=== PATIENT | female | born 1955 | race Caucasian/White ===

== ENCOUNTER 2022-11-21 07:00 | Outpatient (CLI) | payer MEDICARE, MEDICAID, SELFPAY ==
--- NOTE | 2022-11-21 07:21 | CT_ITS ---
WS: [id number] CT NECK TECHNIQUE: Contrast-enhanced CT of the neck with coronal and sagittal reformatted images. 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 DLP: 209.[address] scans at [facility] use at least one of these dose optimization techniques: automated e xposure control; mA and/or kV adjustment per patient size (includes targeted exams where dose is matc hed to clinical indication); or iterative reconstruction. FINDINGS: Large enhancing soft tissue mass at the tongue base suspicious for neoplasm measuring approximately 1 .9 x 3.8 x 2.9 cm. Associated filling of the vallecula with involvement of the epiglottis and aryepig lottic folds bilaterally. Mild narrowing of the piriform sinuses. Recommend direct visualization. Few prominent enhancing LEFT greater than RIGHT retromandibular and jugulodigastric lymph nodes upper limits of normal. Recommend staging with PET/CT. Normal parotid glands. Normal submandibular glands. Normal thyroid enhancement. A few small thyroid n odules largest on the RIGHT measuring 7 mm. Mastoid air cells are well aerated. Paranasal sinuses are well aerated. Lung apices are well aerated. Slight reversal normal cervical lordosis. Mild spondylitic changes cervical spine. IMPRESSION: 1. Large enhancing soft tissue mass involving the tongue base with filling of the vallecula and invo lvement of the epiglottis and aryepiglottic folds. Findings suspicious for neoplasm. Recommend direct visualization with sampling. 2. Enhancing prominent LEFT greater than RIGHT retromandibular lymph nodes. Recommend staging with P ET/CT. 3. No other acute findings.
--- NOTE | 2022-11-21 08:13 | FL_ITS ---
WS: [id number] EXAMINATION: FL barium swallow [id number] REASON FOR EXAM: NEOPLASM OF UNCERTAIN BEHAVIOR OF LARYNX ORDER DATE: 11/21/2022 8:21 AM COMPARISON: None available. TECHNIQUE: The patient was able to swallow thick barium for the esophagram. Cine-fluoroscopy with rapid sequence imaging was obtained while the patient swallowed. The patient was also placed supine and in various recumbent positions during the exam. FINDINGS: There was a normal mucosal fold pattern in the upper esophagus. There is no sign of diverticula, webs or stricture. There was no delay in contrast emptying from the esophagus into the stomach. There was a small sliding hiatal hernia. With provocative maneuvers no gastroesophageal reflux was initiated. The distal esophageal mucosal pattern is unremarkable. IMPRESSION:. HIATAL HERNIA WITHOUT GASTROESOPHAGEAL REFLUX. FLUOROSCOPY TIME: 1min [id number] # OF SPOT FILMS:
[2022-11-21 08:18] LABS: Blood Urea Nitrogen 8 mg/dL (8-23); Glomerular Filtration Rate 55.6 mL/min (90-130)
[2022-11-21] MEDS: iohexol 350 mg/mL 500 mL Btl (per mL) IV (08:19)
== END 2022-11-21 07:01 | disposition home or self-care (01) ==
LOC: RAD 07:01
PROVIDERS: PCP Family Medicine; Visit Provider Specialist
DX: D38.0 Neoplasm of uncertain behavior of larynx (principal); K44.9 Diaphragmatic hernia without obstruction or gangrene
CPT/HCPCS: 70491; 74220; 82565; 84520; Q9967

== ENCOUNTER 2023-03-19 06:59 | Emergency (ER) | payer MEDICARE, MEDICAID, SELFPAY ==
--- NOTE | 2023-03-19 07:04 | XRR_ITS ---
PROCEDURE INFORMATION: Exam: XR Abdomen Exam date and time: 03/19/2023 7:19 AM Age: 67 years old Clinical indication: Constipation; Prior surgery; Surgery date: 6+ months TECHNIQUE: Imaging protocol: Radiologic exam of the abdomen. Views: Frontal supine view of the abdomen. 1 View. COMPARISON: No relevant prior studies available. FINDINGS: Tubes, catheters and devices: Gastrostomy tube projects in the left upper quadrant. Gastrointestinal tract: Normal. No bowel dilation. Bones/joints: Unremarkable. XR/XR KUB portable [id number] IMPRESSION: Nonspecific.
[2023-03-19 07:11] VITALS: BP 146/96; PULSE 106; TEMP 36.7; O2SAT 96; BMI 26.6
[2023-03-19 07:31] VITALS: BP 144/92; PULSE 97; O2SAT 94
--- NOTE | 2023-03-19 07:33 | ED_ITS ---
HPI - Abdominal Pain 2 General: Chief Complaint: Abdominal Pain Stated Complaint: Can't use restroom, abd pain Time Seen by Provider: 03/19/23 07:03 Source: patient Mode of arrival: ambulatory History of Present Illness: 67-year-old female with a history of lar yngeal cancer recently stopped taking her stool softener. She takes most of her nutrition comes in via PEG tube she does swallow some pills orally. She has not been able to have a bowel movement for the last several days has a lot of rectal pressure and discomfort. MD elicited complaint: abdominal pain Pertinent past history: constipation Onset (ago): day(s) Quality: cramping Exacerbating factors: nothing Relieving factors: nothing Associated Symptoms: Reports constipation and GI cramping; Denies anorexia, belching, bloating, change in bowel habits, change in stool character, chills, coffee ground emesis, diarrhea, dyspepsia, dysuria, excessive flatus, fever(s), heartburn, hematochezia, hematuria, hematemesis, fecal incontinence, loose stools, melena, nausea, poor appetite, syncope and vomiting Review of Systems 2 Const: Denies: fever(s) or chills Card: Denies: chest pain or syncope Resp: Denies: dyspnea GI: Reports: constipation and GI cramping; Denies: abdominal pain, nausea, vomiting, hematemesis, coffee ground emesis, heartburn, diarrhea, bloating, belching, excessive flatus, fecal incontinence, change in bowel habits, change in stool character, hematochezia or melena : Denies: dysuria, urinary frequency, urinary urgency or hematuria Musc: Denies: neck pain or back pain Skin/Breast: Denies: rash Physical Exam 2 Const: COMMON NORMALS: no acute distress GENERAL APPEARANCE: cooperative and comfortable ORIENTATION/CONSCIOUSNESS: Yes awake, Yes oriented to person, Yes oriented to place and Yes oriented to time HENMT: COMMON NORMALS: normocephalic, atraumatic and hearing grossly normal bilaterally HEAD & SCALP: normocephalic and atraumatic Resp: COMMON NORMALS: normal respiratory effort, No retractions, No use of accessory muscles and clear to auscultation bilaterally AUSCULTATION: clear to auscultation bilaterally Cardio: COMMON NORMALS: regular rate, regular rhythm and No murmurs present (Cardio) RATE: regular rate RHYTHM: regular rhythm GI: COMMON NORMALS: Soft to palpation and No hepatosplenomegaly present A USCULTATION: Yes normoactive bowel sounds PALPATION: Yes Soft to palpation, No Tenderness to palpation present (GI), No Guarding due to palpation present (GI) and Yes No hepatosplenomegaly present Extremity: COMMON NORMALS: normal to inspection, capillary refill normal, no clubbing, cyanosis or edema, no calf tenderness and no pedal edema Neuro: SENSORIUM/ORIENTATION: Yes oriented to person, Yes oriented to place and Yes oriented to time Skin: COMMON NORMALS: no rashes or lesions noted GENERAL SKIN EXAM: no rashes or lesions noted Course 2 Vital Signs: Vital signs: Vital Signs Temperature 98.1 F 03/19/23 07:11 Pulse Rate 94 03/19/23 10:00 Blood Pressure 139/85 03/19/23 10:00 Pulse Oximetry 96 03/19/23 10:00 Oxygen Delivery Me thod Room Air 03/19/23 10:00 MDM - Abdominal Pain Medical Decision Making Labs and imaging reviewed. Patient severely constipated. Enema done had good results will discharge home use lactulose every 2 hours for further results. Medical Records I reviewed the patient's medical records. Lab Data I reviewed the patient's lab results. 03/19/23 07:37 03/19/23 07:37 Labs/Radiology: Radiology Impressions KUB X-Ray 03/19/23 07:04 IMPRESSION: Nonspecific. Laboratory Results WBC 7.47 10^3/uL (3.29-11.43) 03/19/23 07:37 RBC 4.26 10^6/uL (3.85-5.65) 03/19/23 07:37 Hgb 11.80 g/dL (11.27-16.99) 03/19/23 07:37 Hct 37.1 % (36-47) 03/19/23 07:37 MCV 87.1 fl (85-98) 03/19/23 07:37 MCH 27.7 pg (27-33) 03/19/23 07:37 MCHC 31.8 g/dL (30-55) 03/19/23 07:37 RDW 14.7 % (12.1-15.1) 03/19/23 07:37 Plt Count 312 10^3/cmm (157-399) 03/19/23 07:37 MPV 8.7 fL (7.4-10.4) 03/19/23 07:37 Neut % (Auto) 83.4 % 03/19/23 07:37 Lymph % (Auto) 4.6 % 03/19/23 07:37 [place] % (Auto) 7.9 % 03/19/23 07:37 Eos % (Auto) 0.3 % 03/19/23 07:37 Baso % (Auto) 0.1 % 03/19/23 07:37 Neut # (Auto) 6.23 10^3/uL (1.8-7.7) 03/19/23 07:37 Lymph # (Auto) 0.3 10^3/uL (0.8-4.8) L 03/19/23 07:37 [place] # (Auto) 0.6 10^3/uL (0.2-0.9) 03/19/23 07:37 Eos # (Auto) 0.0 10^3/uL (0.0-0.8) 03/19/23 07:37 Baso # (Auto) 0.0 10^3/uL (0.0-0.1) 03/19/23 07:37 Nucleated RBC % (auto) 0 % 03/19/23 07:37 Nucleated RBCs # 0.0 /100WBC 03/19/23 07:37 Sodium 135 mmol/L (136-145) L 03/19/23 07:37 Potassium 3.8 mmol/L (3.5-5.1) 03/19/23 07:37 Chloride 97 mmol/L (98-107) L 03/19/23 07:37 Carbon Dioxide 28 mmol/L (22-29) 03/19/23 07:37 Anion Gap 13.8 (5-19) 03/19/23 07:37 BUN 12 mg/dL (8-23) 03/19/23 07:37 Creatinine 0.7 mg/dL (0.5-0.9) 03/19/23 07:37 GFR Calculation 83.7 mL/min (90-130) L 03/19/23 07:37 Glucose 119 mg/dL (65-115) H 03/19/23 07:37 Calculated Osmolality 281 mOsm/kg (285-295) L 03/19/23 07:37 Calcium 9.4 mg/dL (8.5-10.5) 03/19/23 07:37 Total Bilirubin 0.4 mg/dL (0.15-1.2) 03/19/23 07:37 AST 12 U/L (0-32) 03/19/23 07:37 ALT 13 U/L (0-33) 03/19/23 07:37 Alkaline Phosphatase 88 U/L (35-105) 03/19/23 07:37 Total Protein 6.5 g/dL (6.6-8.7) L 03/19/23 07:37 Albumin 3.4 g/dL (3.5-5.2) L 03/19/23 07:37 Globulin 3.1 g/dL (1.3-4.6) 03/19/23 07:37 All radiology interpretation(s) finalized by discharge Discharge Plan Discharge Patient Disposition: Home Condition: Stable Prescriptions: New lactulose 20 gram/30 mL solution 30 g PO Q2H 1 Days Qty: 540 0RF Rx Instructions: until desired laxative effect No Action oxycodone 5 mg/5 mL solution See Rx Instructions .ROUTE .COMPLEX Rx Instructions: as directed prochlorperazine maleate 10 mg tablet 10 mg PO TID PRN (Reason: Nausea And Vomiting) guaifenesin 100 mg/5 mL liquid See Rx Instructions .ROUTE .COMPLEX Rx Instructions: as directed docusate sodium 100 mg capsule 100 mg PO BID omeprazole 20 mg capsule,delayed release(DR/EC) 20 mg PO DAILY losartan-hydrochlorothiazide 50-12.5 mg tablet 1 tab PO DAILY bupropion HCl 150 mg tablet extended release 24 hr 150 mg PO DAILY Discharge Orders: Discharge ED (Routine); Ordered 03/19/23 Ordered By: Kamron Diez Referrals: López Griffin MD [Primary Care Provider] - Patient Instructions: Opioid Safety, Pain Management Coding Level of Care Code ED [employer] for [employer] [facility]
[2023-03-19 07:53] LABS: Basophils % 0.1 %; Eosinophils % 0.3 %; Hematocrit 37.1 % (36-47); Lymphocytes # 0.3 10^3/uL (0.8-4.8); Lymphocytes % 4.6 %; Mean Corpuscular HGB Conc 31.8 g/dL (30-55); Mean Corpuscular Hemoglobin 27.7 pg (27-33); Mean Corpuscular Volume 87.1 fl (85-98); Mean Platelet Volume 8.7 fL (7.4-10.4); Monocytes # 0.6 10^3/uL (0.2-0.9); Monocytes % 7.9 %; Neutrophils # 6.23 10^3/uL (1.8-7.7); Neutrophils % 83.4 %; Nucleated Red Blood Cells % 0 %; Platelet Count 312 10^3/cmm (157-399); Red Blood Count 4.26 10^6/uL (3.85-5.65); Red Cell Distribution Width 14.7 % (12.1-15.1); White Blood Count 7.47 10^3/uL (3.29-11.43)
[2023-03-19 07:59] LABS: Alanine Aminotransferase 13 U/L (0-33); Albumin Level 3.4 g/dL (3.5-5.2); Alkaline Phosphatase 88 U/L (35-105); Anion Gap 13.8 (5-19); Aspartate Amino Transferase 12 U/L (0-32); Blood Urea Nitrogen 12 mg/dL (8-23); Calcium 9.4 mg/dL (8.5-10.5); Carbon Dioxide 28 mmol/L (22-29); Chloride 97 mmol/L (98-107); Globulin 3.1 g/dL (1.3-4.6); Glomerular Filtration Rate 83.7 mL/min (90-130); Glucose 119 mg/dL (65-115); Osmolality Calculated 281 mOsm/kg (285-295); Potassium 3.8 mmol/L (3.5-5.1); Sodium 135 mmol/L (136-145); Total Bilirubin 0.4 mg/dL (0.15-1.2); Total Protein 6.5 g/dL (6.6-8.7)
[2023-03-19 08:16] VITALS: BP 144/92; PULSE 96; O2SAT 94
[2023-03-19 10:00] VITALS: BP 139/85; PULSE 94; O2SAT 96
== END 2023-03-19 11:00 | disposition home or self-care (01) ==
PROVIDERS: Emergency Provider Family Medicine; PCP Family Medicine
DX: K59.00 Constipation, unspecified (principal); R10.9 Unspecified abdominal pain
CPT/HCPCS: 36415; 74018; 80053; 85025; 99284; 99291

== ENCOUNTER 2023-04-02 12:49 | Outpatient (RCR) | payer MEDICARE, SELFPAY | END 2023-04-29 23:59 | disposition home or self-care (01) | LOC: SST 12:49 | PROVIDERS: PCP Family Medicine; Visit Provider Radiology Radiation Oncology | DX: Z85.21 Personal history of malignant neoplasm of larynx (principal); Z92.3 Personal history of irradiation | CPT/HCPCS: 92610 ==

== ENCOUNTER → 2023-07-07 07:57 | Outpatient (BNVA) | payer MEDICARE, MEDICAID, SELFPAY | PROVIDERS: PCP Family Medicine; Visit Provider Nurse Practitioner Family | DX: C44.629 Squamous cell carcinoma of skin of left upper limb, including shoulder (principal); C44.622 Squamous cell carcinoma of skin of right upper limb, including shoulder; C44.612 Basal cell carcinoma of skin of right upper limb, including shoulder; L57.0 Actinic keratosis; Z85.828 Personal history of other malignant neoplasm of skin; L65.0 Telogen effluvium; D84.9 Immunodeficiency, unspecified; Z85.21 Personal history of malignant neoplasm of larynx; L21.8 Other seborrheic dermatitis; L57.8 Other skin changes due to chronic exposure to nonionizing radiation | CPT/HCPCS: 11102; 17004; 99204 ==

== ENCOUNTER → 2023-08-06 08:14 | Outpatient (BNVA) | payer MEDICARE, MEDICAID, SELFPAY | PROVIDERS: PCP Family Medicine; Visit Provider Dermatology | DX: C44.612 Basal cell carcinoma of skin of right upper limb, including shoulder (principal); L57.0 Actinic keratosis; D04.61 Carcinoma in situ of skin of right upper limb, including shoulder; D04.62 Carcinoma in situ of skin of left upper limb, including shoulder | CPT/HCPCS: 12034; 17000; 17313; 99213 ==

== ENCOUNTER → 2023-11-06 10:19 | Outpatient (BNVA) | payer MEDICARE, MEDICAID, SELFPAY | PROVIDERS: PCP Family Medicine; Visit Provider Nurse Practitioner Family | DX: D48.5 Neoplasm of uncertain behavior of skin (principal); D04.61 Carcinoma in situ of skin of right upper limb, including shoulder; L57.0 Actinic keratosis; L57.8 Other skin changes due to chronic exposure to nonionizing radiation; L21.8 Other seborrheic dermatitis; Z85.828 Personal history of other malignant neoplasm of skin | CPT/HCPCS: 11102; 17000; 99213 ==

== ENCOUNTER → 2023-11-17 10:27 | Outpatient (BNVA) | payer MEDICARE, MEDICAID, SELFPAY | PROVIDERS: PCP Family Medicine; Visit Provider Dermatology | DX: D04.62 Carcinoma in situ of skin of left upper limb, including shoulder (principal); L57.0 Actinic keratosis; Z85.828 Personal history of other malignant neoplasm of skin | CPT/HCPCS: 17000; 99214 ==

== ENCOUNTER → 2023-12-01 08:51 | Outpatient (BNVA) | payer MEDICARE, MEDICAID, SELFPAY | PROVIDERS: PCP Family Medicine; Visit Provider Dermatology | DX: D04.61 Carcinoma in situ of skin of right upper limb, including shoulder (principal); D04.62 Carcinoma in situ of skin of left upper limb, including shoulder | CPT/HCPCS: 13132; 17311; 99214 ==

== ENCOUNTER 2024-01-20 07:20 | Outpatient (CLI) | payer MEDICARE, MEDICAID, SELFPAY ==
--- NOTE | 2024-01-20 07:42 | CT_ITS ---
WS: [id number] CT NECK TECHNIQUE: Contrast-enhanced CT of the neck with coronal and sagittal reformatted images. CLINICAL INFORMATION: MALIGNANT TUMOR OF SUPRAGLOTTIS COMPARISON: None. DLP: 161.[address] scans at [facility] use at least one of these dose optimization techniques: automated e xposure control; mA and/or kV adjustment per patient size (includes targeted exams where dose is matc hed to clinical indication); or iterative reconstruction. FINDINGS: Partially visualized paranasal sinuses are well aerated. Mastoid air cells are well aerated . Parotid glands are normal. Submandibular glands are normal. Mild diffuse edema in the supraglottic and glottic larynx compatible with treatment related changes. Edema involving the epiglottis. Parotid glands are normal. Submandibular glands are normal. Mild ferraro tid bulb calcification. No cervical lymphadenopathy. RIGHT upper pole thyroid nodule measuring 1.3 x 0.9 cm. Fibrosis in the lung apices. Straightening of the normal cervical lordosis with moderate spondylitic changes. Small disc osteophyte complexes at C 6-7. CT/CT neck w con* [id number] IMPRESSION: 1. Previously described tongue base and epiglottic mass has resolved. No evide nce of enhancing residual disease. PET/CT would be more sensitive to evaluate f or residual active disease. 2. Diffuse circumferential edema involving the supraglottic and glottic larynx compatible with treatment related changes. Edema involving the epiglottis. 3. No suspicious cervical lymph nodes. 4. RIGHT upper pole heterogeneous thyroid nodule appears increased in size com pared to previous measuring 1.3 x 1.0 cm. This could be further evaluated with ultrasound.
[2024-01-20] MEDS: iohexol 350 mg/mL 500 mL Btl (per mL) IV (08:32)
[2024-01-20 08:40] LABS: Blood Urea Nitrogen 17 mg/dL (8-23); Glomerular Filtration Rate 62.5 mL/min (90-130)
== END 2024-01-20 07:21 | disposition home or self-care (01) ==
LOC: RAD 07:21
PROVIDERS: PCP Family Medicine; Visit Provider Family Medicine
DX: C32.1 Malignant neoplasm of supraglottis (principal); E04.1 Nontoxic single thyroid nodule
CPT/HCPCS: 70491; 82565; 84520